=== PATIENT | female | born 1990 | race Caucasian/White ===

== ENCOUNTER 2021-01-31 07:00 | Inpatient (IN) ==
[2021-01-31] MEDS ORDERED: LACTATED RINGER'S 1,000 ML IV PRN (08:36)
[2021-01-31] MEDS ORDERED: OXYTOCIN 30 UNITS/500 ML BAG IV PRN (08:36)
[2021-01-31 09:01] LABS: Hematocrit (blood only) 34.7 % (37-47); Hemoglobin 11.6 g/dL (12.0-16.0); Mean Corpuscular Hemoglobin 28.2 pg (25-34); Mean Corpuscular Hgb Conc 33.4 g/dL (32-36); Mean Corpuscular Volume 84.2 fL (80-100); Mean Platelet Volume 9.3 fL (7.4-10.4); Platelet Count 321 K/uL (130-400); RDW Coefficient of Variation 13.3 % (11.5-14.5); RDW Standard Deviation 40.3 fL (36.4-46.3); Red Blood Count 4.12 M/uL (4.2-5.4); White Blood Count 10.65 K/uL (4.8-10.8)
[2021-01-31] MEDS ORDERED: DEXTROSE 5% 1,000 ML IV PRN (09:10)
[2021-01-31] MEDS ORDERED: SODIUM CHLORIDE 0.9% 1000ML 1,000 ML IV PRN (09:10)
[2021-01-31] MEDS ORDERED: INSULIN REGULAR 250 UNITS in SODIUM CHLORIDE 0.9% 247.5 ML IV PRN (09:10)
[2021-01-31] MEDS ORDERED: DEXTROSE 50% 50 ML SYRINGE IV PRN ×2 (09:10→11:15)
--- NOTE | 2021-01-31 09:19 | History & Physical Report ---
Date of Service January 31, 2021 Assessment & Plan (1) Gestational diabetes mellitus (GDM) affecting first : Plan: Induction of labor for GDM on insulin and Class III obesity Admission and Anticipated Discharge Date Admission Date: January 31, 2021 History of Present Illness Chief Complaint: Induction of labor at 39 weeks for GDM on insulin Primary Care Provider: NO PCP 30 F P0010 at 39 weeks admitted for induction of labor for GDM on insulin and Class III obesity. Allergies Allergy/AdvReac Type Severity Reaction Status Date / Time No Known Allergies Allergy Verified 08/10/20 20:31 Home Medications Medication Instructions Recorded Confirmed Type acetaminophen 500 mg tablet 1,000 mg PO Q6H PRN 08/10/20 01/31/21 History (Tylenol Extra Strength) diphenhydramine HCl 50 mg capsule 50 mg PO HS PRN 08/10/20 01/31/21 History (Unisom SleepGels) insulin NPH isoph U-100 human 100 24 unit SUBCUT QPM 08/10/20 01/31/21 History unit/mL subcutaneous suspension (Novolin N NPH U-100 Insulin isophane) [id number] 1 mg 1 tab PO DAILY 08/10/20 01/31/21 History tablet aspirin 81 mg chewable tablet 81 mg PO DAILY 01/31/21 01/31/21 History insulin NPH isoph U-100 human 12 units SUBCUT QAM 01/31/21 01/31/21 History Patient History Medical History Acute appendicitis ADHD (attention deficit hyperactivity disorder) Depression OCD (obsessive compulsive disorder) H/O hair pulling Surgical History H/O wisdom tooth extraction History of appendectomy History of cholecystectomy Family History Grandfather (Paternal) No pertinent family history Other Hypertension Social History Smoking Status: Former smoker Hx Alcohol Use: No Hx Substance Use: No Preferred Language: Spanish Visual Impairment: Limited Hearing Ability: Normal Switching Operator Required: No Beliefs That Will Affect Care: None marital status: Single Current Living Situation: Significant Other Current Living Situation Comment: S.O. 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 Physical Exam Constitutional: WD/WN, vitals as above + obese and comfortable Eyes: PERRL, conjunctivae normal, anicteric sclerae Neck: trachea midline, no thyromegaly Cardiovascular: Rate/Rhythm: regular rate Neurologic: patellar DTR's 2+ bilat, sensation intact Psychiatric: A+Ox3, euthymic affect Genitourinary: no vaginal lesions, no adnexal mass OB Exam Abdomen: + heart tones, + vertex and + estimated weight (7.5 lbs) Manual OB Exam: + cervical dilation (closed), + cervical effacement 50% and + station high cervix posterior, firm, closed and unripe will plan for Cervidil for cervical ripening Results & Data ([facility]) Vital Signs (Past 12 Hours) Vital Signs Temp Pulse Resp BP 01/31/21 07:38 37.1 C 18 01/31/21 07:13 37.1 C 101 H 20 136/86 Laboratory Results Laboratory Results - last 72 hr 01/31/21 01/31/21 01/31/21 08:20 08:20 08:45 WBC 10.65 RBC 4.12 L Hgb 11.6 L Hct 34.7 L MCV 84.2 MCH 28.2 MCHC 33.4 RDW Std Deviation 40.3 RDW Coeff of [place] 13.3 Plt Count 321 MPV 9.3 POC Glucose COVID-19 Eval [facility] SARS-CoV-2, RNA, NAAT NEGATIVE 01/31/21 08:47 WBC RBC Hgb Hct MCV MCH MCHC RDW Std Deviation RDW Coeff of [place] Plt Count MPV POC Glucose 101 H COVID-19 Eval Order SARS-CoV-2, RNA, NAAT Code Status & VTE Plan VTE Prophylaxis Plan VTE Prophylaxis will be ordered: No Monitoring External Monitor FHT Cat 1
--- NOTE | 2021-01-31 09:43 | Labor Progress Brief Note ---
Date of Service January 31, 2021 Assessment & Plan Admission and Anticipated Discharge Date Admission Date: January 31, 2021 Physical Exam Genitourinary: Cervidil 10 mg placed vaginally for ripening Results & Data ([facility]) Vital Signs (Past 12 Hours) Vital Signs Temp Pulse Resp BP 01/31/21 07:38 37.1 C 18 01/31/21 07:13 37.1 C 101 H 20 136/86
[2021-01-31] MEDS ORDERED: DINOPROSTONE 10 MG INSERT PV ONE (10:00)
[2021-01-31] MEDS ORDERED: PHARMACY GLYCEMIC MGMT CONSULT PRN (10:45)
--- NOTE | 2021-01-31 11:14 | Pharmacy Report ---
Pharmacy Glycemic Short Note 2 - Date of Service January 31, 2021 - Glycemic Short BSG Results (Last 24 hours): 01/31/21 08:47 POC Glucose 101 H OUTPATIENT ANTIDIABETIC REGIMEN: * NPH: 12 units SQ QAM, 24 units SQ QPM ASSESSMENT: * 30 F P0010 at 39 weeks admitted for induction of labor for GDM on insulin and Class III obesity. 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 * Patient is eating and blood sugar to be checked 1 hour after meals. * If patient uncontrolled on SQ regimen, will switch to insulin drip intrapartum protocol. PLAN FOR INPATIENT GLYCEMIC CONTROL: * Basal insulin * NPH 12 units SQ HS for BSG > 120mg/ml * Bolus insulin: NovoLog per sliding scale Q4H * BSG 120 or less - 0 units * BSG 121-140 - 1 units * BSG 141-160 - 2 units * BSG 161-180 - 3 units * BSG 181-200 - 4 units * BSG > 200 = 4 units and switch to IV insulin protocol PLAN FOR DISCHARGE: * to be determined, patient not on insulin prior to , likely will not need , but will need to be monitored as she is at a greater risk now of Type 2 DM, especially with Class III Obesity.
[2021-01-31] MEDS ORDERED: CARBOHYDRATES FOR HYPOGLYCEMIA PO PRN (11:15)
[2021-01-31] MEDS ORDERED: GLUCAGON FOR INJ 1 MG VIAL IM PRN (11:15)
[2021-01-31] MEDS ORDERED: GLUCOSE 10 TABS/TUBE PO PRN (11:15)
[2021-01-31] MEDS ORDERED: GLUCOSE 40% GEL 15 GM TUBE PO PRN (11:15)
[2021-01-31] MEDS: INSULIN ASPART 100 UNITS/ML 3 ML PEN SC SCH ×5 (11:39→23:57)
[2021-01-31] MEDS: NovoLIN-N (NPH) PER UNIT CHARGE SQ SCH (20:51)
[2021-01-31] MEDS ORDERED: BUTORPHANOL TARTRATE 1 MG/ML VIAL IV PRN (21:48)
--- NOTE | 2021-01-31 21:52 | Labor Progress Brief Note ---
Date of Service January 31, 2021 Assessment & Plan Admission and Anticipated Discharge Date Admission Date: January 31, 2021 Physical Exam Genitourinary: Manual OB Exam: + cervical dilation fingertip, + cervical effacement 50% and + station high OB Exam Monitor Tracing: + external FHT monitor used, + external uterine monitor used, + category I and + normal FHT variability Cervidil pulled out of vagina. Cervix is softening. Will give Cytotec 50 mcg through the night. Results & Data ([facility]) Vital Signs (Past 12 Hours) Vital Signs Temp Pulse Resp BP 01/31/21 19:00 36.8 C 18 01/31/21 18:57 72 122/79 01/31/21 14:26 36.6 C 77 18 116/78 01/31/21 11:30 78 118/73 01/31/21 11:29 36.3 C L 16
[2021-02-01] MEDS: miSOPROStoL 50 MCG TAB PO SCH ×5 (01:50→21:47)
[2021-02-01] MEDS: INSULIN ASPART 100 UNITS/ML 3 ML PEN SC SCH ×5 (04:55→19:48)
--- NOTE | 2021-02-01 08:07 | Obstetrical Progress Note ---
Date of Service February 01, 2021 Assessment & Plan Admission and Anticipated Discharge Date Admission Date: January 31, 2021 Subjective Patient is seen and examined I reviewed her records and confirmed with her GDM A2, on insulin GBS negative Received Cervidil PV yesterday and 1 dose of PO Cytotec at 5 am Feels mild contractions, not painful yet VSS Afebrile doing well FHR categ I [place] irregular ctxs q 4-5 min VE; 2/ 30%/ -3, ballotable Bed side US confirmed vertex Continue with cervical ripening Continue to monitor Results & Data ([facility]) Vital Signs (Past 12 Hours) Vital Signs Temp Pulse Resp BP 02/01/21 07:41 91 H 126/81 02/01/21 07:30 36.8 C 20 02/01/21 04:12 83 126/72 01/31/21 23:08 36.7 C 72 18 119/75
--- NOTE | 2021-02-01 12:49 | Pharmacy Report ---
Pharmacy Glycemic Short Note 2 - Date of Service February 01, 2021 - Glycemic Short BSG Results (Last 24 hours): 01/31/21 01/31/21 01/31/21 11:32 13:19 18:17 POC Glucose 136 H 132 H 135 H 01/31/21 01/31/21 02/01/21 20:48 23:54 04:23 POC Glucose 118 H 98 110 H 02/01/21 08:17 POC Glucose 102 H OUTPATIENT ANTIDIABETIC REGIMEN: * NPH: 12 units SQ QAM, 24 units SQ QPM ASSESSMENT: 02/01/21 * Blood sugars well controlled over past 24 hours, 98-136mg/dl, required only 2 units of Novolog * No changes at this time, patient continues to be eating and starting to progress to active labor 01/31/21 * 30 F P0010 at 39 weeks admitted for induction of labor for GDM on insulin and Class III obesity. 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 * Patient is eating. * If patient uncontrolled on SQ regimen, will switch to insulin drip intrapartum protocol. PLAN FOR INPATIENT GLYCEMIC CONTROL: * Basal insulin * NPH 12 units SQ HS for BSG > 120mg/ml * Bolus insulin: NovoLog per sliding scale Q4H * BSG 120 or less - 0 units * BSG 121-140 - 1 units * BSG 141-160 - 2 units * BSG 161-180 - 3 units * BSG 181-200 - 4 units * BSG > 200 = 4 units and switch to IV insulin protocol PLAN FOR DISCHARGE: * to be determined, patient not on insulin prior to , likely will not need , but will need to be monitored as she is at a greater risk now of Type 2 DM, especially with Class III Obesity.
--- NOTE | 2021-02-01 14:07 | Obstetrical Progress Note ---
Date of Service February 01, 2021 Assessment & Plan Admission and Anticipated Discharge Date Admission Date: January 31, 2021 Subjective Patient is reevaluated. She feels mild irregular contractions. Some more pain ful but most are not. No leakage of fluid or vaginal bleeding. Good movements. heart rate category 1, toco with irregular contractions every 4 to 5 minutes. Vaginal exam, cervix is unchanged at 2 cm, 40%, -3, posterior Plan to continue with p.o. Cytotec for cervical ripening. Continue to monitor per protocol and ambulate in between. Results & Data ([facility]) Vital Signs (Past 12 Hours) Vital Signs Temp Pulse Resp BP 02/01/21 11:49 70 99/66 L 02/01/21 10:30 18 02/01/21 09:52 83 123/76 02/01/21 09:45 18 02/01/21 08:00 20 02/01/21 07:41 91 H 126/81 02/01/21 07:30 36.8 C 02/01/21 04:12 83 126/72
[2021-02-01] MEDS ORDERED: ONDANSETRON INJ 2 MG/ML 2 ML VIAL IV PRN (19:49)
--- NOTE | 2021-02-01 19:49 | Obstetrical Progress Note ---
Date of Service February 01, 2021 Assessment & Plan Admission and Anticipated Discharge Date Admission Date: January 31, 2021 Subjective Patient feels more stronger ctxs and more regular than before Pain is 5/10 Declines pain meds She desirss to eat dinner VSS Afebrile FHR categ I [place] ctxs q 2-3 min VE: unchanged, high and posterior cervix, she is uncomfortable with exam Discussed options after dinner, PO Cytotec vs Vaginal Cervidil She prefers PO tb Continue to monitor closely and cervical ripening Results & Data ([facility]) Vital Signs (Past 12 Hours) Vital Signs Temp Pulse Resp BP 02/01/21 19:00 20 02/01/21 18:30 20 02/01/21 15:29 66 125/80 02/01/21 15:00 18 02/01/21 14:30 20 02/01/21 14:05 67 99/67 L 02/01/21 14:00 36.6 C 18 02/01/21 11:49 70 99/66 L 02/01/21 10:30 18 02/01/21 09:52 83 123/76 02/01/21 09:45 18 02/01/21 08:00 20
[2021-02-01] MEDS: NovoLIN-N (NPH) PER UNIT CHARGE SQ SCH (21:48)
[2021-02-02] MEDS: INSULIN ASPART 100 UNITS/ML 3 ML PEN SC SCH ×5 (00:06→16:51)
[2021-02-02] MEDS ORDERED: ACETAMINOPHEN 325 MG TAB PO PRN ×2 (00:20→19:03)
[2021-02-02] MEDS: CALCIUM CARBONATE 500 MG CHEWABLE TAB PO PRN ×3 (00:34→15:47)
[2021-02-02] MEDS: miSOPROStoL 50 MCG TAB PO SCH ×2 (00:35→04:30)
[2021-02-02] MEDS ORDERED: fentaNYL citrate 100 MCG/2 ML VIAL ONE (07:17)
[2021-02-02] MEDS ORDERED: SODIUM CHLORIDE 0.9% INJ 10 ML VIAL ONE (07:17)
[2021-02-02] MEDS ORDERED: ePHEDrine sulfate 50 MG/ML AMP ONE (07:17)
[2021-02-02] MEDS ORDERED: BUPIVACAINE 0.25% 30 ML VIAL ONE (07:17)
[2021-02-02] MEDS ORDERED: fentaNYL 2MCG/ML ROPIVACAINE 1.25MG/ML 100 ML BAG EPI ONE (07:18)
--- NOTE | 2021-02-02 07:19 | Obstetrical Progress Note ---
Date of Service February 02, 2021 Assessment & Plan Admission and Anticipated Discharge Date Admission Date: January 31, 2021 Subjective Patient is reevaluated She started to have more regular and stronger contractions after the last dose of Cytotec. Received Stadol for pain FHR had late decels after recurrent contractions, improved after IVF bolus, now categ I VE: 3/ 50%/ -3 Will give epidural for pain and continue to monitor closely Results & Data ([facility]) Vital Signs (Past 12 Hours) Vital Signs Temp Pulse Resp BP Pulse Ox 02/02/21 07:13 68 88 L 02/02/21 07:10 57 L 97 02/02/21 07:05 67 99 02/02/21 07:03 59 L 104/62 02/02/21 07:00 66 97 02/02/21 06:55 65 97 02/02/21 06:50 63 98 02/02/21 06:45 64 98 02/02/21 06:40 72 99 02/02/21 06:35 56 L 97 02/02/21 06:30 56 L 98 02/02/21 06:25 60 97 02/02/21 06:20 55 L 96 02/02/21 06:15 68 97 02/02/21 06:10 61 97 02/02/21 06:05 58 L 96 02/02/21 06:00 66 97 02/02/21 05:55 58 L 97 02/02/21 05:50 66 96 02/02/21 05:45 61 96 02/02/21 05:40 64 96 02/02/21 05:35 67 97 02/02/21 05:31 63 93 02/02/21 05:30 77 95 02/02/21 05:26 62 94 02/02/21 05:25 66 96 02/02/21 05:20 59 L 93 02/02/21 05:17 66 105/70 02/02/21 05:15 68 97 02/02/21 03:48 36.7 C 76 18 111/63 02/02/21 00:12 36.7 C 18 02/02/21 00:04 36.7 C 72 18 106/61 02/01/21 23:05 36.8 C 75 18 122/67 02/01/21 19:46 68 117/79 02/01/21 19:20 36.8 C 18
[2021-02-02] MEDS: LACTATED RINGER'S 1,000 ML IV SCH ×3 (07:46→16:58)
--- NOTE | 2021-02-02 08:40 | Anesthesiology Consultation ---
Date of Service February 02, 2021 Assessment & Plan Chart Review Chart Review: Acceptable Risk for Labor Epidural Consults Requested none History Height/Weight Height: 5 ft 5 in Weight: 120.202 kg Allergies Allergy/AdvReac Type Severity Reaction Status Date / Time No Known Allergies Allergy Verified 08/10/20 20:31 Medications Home Medications Medication Instructions Recorded Confirmed Last Taken acetaminophen 500 mg tablet 1,000 mg PO Q6H PRN 08/10/20 01/31/21 01/29/21 21:00 (Tylenol Extra Strength) diphenhydramine HCl 50 mg capsule 50 mg PO HS PRN 08/10/20 01/31/21 01/27/21 21:00 (Unisom SleepGels) insulin NPH isoph U-100 human 100 24 unit SUBCUT QPM 08/10/20 01/31/21 01/30/21 21:00 unit/mL subcutaneous suspension (Novolin N NPH U-100 Insulin isophane) vpgnrkjc-[id number]-Ay-[id number] 1 mg 1 tab PO DAILY 08/10/20 01/31/21 01/31/21 06:30 tablet aspirin 81 mg chewable tablet 81 mg PO DAILY 01/31/21 01/31/21 01/31/21 06:30 insulin NPH isoph U-100 human 12 units SUBCUT QAM 01/31/21 01/31/21 01/31/21 06:00 Active Medications Generic Name Dose Route Start Last Admin Trade Name Freq PRN Reason Stop Dose Admin Acetaminophen 650 mg 02/02/21 00:20 02/02/21 00:34 Acetaminophen 325 Mg Tab PO 03/04/21 00:19 650 mg Q4H PRN Administration Pain Butorphanol Tartrate 1 mg 01/31/21 21:48 02/02/21 05:17 Butorphanol Tartrate 1 Mg/Ml Vial IV 03/02/21 21:47 1 mg Q2R PRN Administration Pain Calcium Carbonate 500 mg 02/02/21 00:20 02/02/21 00:34 Calcium Carbonate 500 Mg Chewable Tab PO 03/04/21 00:19 500 mg Q6 PRN Administration Indigestion Lactated Ringer's 1,000 mls @ 150 mls/hr 02/02/21 07:30 02/02/21 07:46 Lr IV 03/04/21 07:29 150 mls/hr .Q6H40M MICHELL Administration Insulin Aspart 0 units 01/31/21 12:00 02/02/21 04:06 Insulin Aspart 100 Units/Ml 3 Ml Pen SC 03/02/21 11:59 Not Given Q4H MICHELL Protocol Insulin Human NPH 0 units 01/31/21 21:00 02/01/21 21:48 Novolin-N (Nph) Per Unit Charge SQ 03/02/21 20:59 Not Given HS MICHELL Protocol Misoprostol 50 mcg 02/01/21 00:00 02/02/21 04:30 Misoprostol 50 Mcg Tab PO 03/03/21 00:00 Not Given Q4 MICHELL Past Medical History Medical History Acute appendicitis ADHD (attention deficit hyperactivity disorder) Depression OCD (obsessive compulsive disorder) H/O hair pulling Past Family History Family History Grandfather (Paternal) No pertinent family history Other Hypertension Past Surgical History Surgical History H/O wisdom tooth extraction History of appendectomy History of cholecystectomy Social History Smoking Status: Former smoker tobacco type: cigarettes Hx Alcohol Use: No Hx Substance Use: No substance use type: does not use Physical Exam Vital Signs Last Vital Signs Temp 36.5 C 02/02/21 07:15 Pulse 73 02/02/21 08:39 Resp 20 02/02/21 08:00 BP 114/73 02/02/21 08:39 Pulse Ox 100 02/02/21 08:35 Testing Laboratory Results 01/31/21 08:45 02/02/21 02/02/21 02/02/21 07:56 04:06 00:06 POC Glucose 93 87 101 H
[2021-02-02] MEDS ORDERED: fentaNYL 2MCG/ML ROPIVACAINE 1.25MG/ML 100 ML BAG EPI PRN (08:41)
[2021-02-02] MEDS ORDERED: OXYTOCIN 30 UNITS/500 ML BAG IV PRN ×2 (08:41→19:03)
[2021-02-02] MEDS ORDERED: diphenhydrAMINE 50 MG/ML VIAL IV PRN (08:41)
[2021-02-02] MEDS ORDERED: NALOXONE HCL 1 MG in SODIUM CHLORIDE 0.9% 1000ML 1,000 ML IV PRN (08:41)
[2021-02-02] MEDS ORDERED: NALOXONE HCL 0.4 MG/1 ML VIAL/CARP IV PRN (08:41)
[2021-02-02] MEDS ORDERED: NALBUPHINE HCL INJ 10 MG/ML AMP IV PRN (08:41)
[2021-02-02] MEDS: ePHEDrine sulfate 50 MG/ML AMP IV PRN ×2 (10:18→10:50)
--- NOTE | 2021-02-02 10:27 | Labor Progress Brief Note ---
Date of Service February 02, 2021 Assessment & Plan Admission and Anticipated Discharge Date Admission Date: January 31, 2021 Physical Exam Genitourinary: Manual OB Exam: + cervical dilation 5 cm, + cervical effacement 90%, + station -1 and + amniotic fluid (SROM clear fluid on exam) clear Results & Data ([facility]) Vital Signs (Past 12 Hours) Vital Signs Temp Pulse Resp BP Pulse Ox 02/02/21 10:23 68 122/61 02/02/21 10:21 95 H 82/46 L 02/02/21 10:20 105 H 100 02/02/21 10:19 94 H 92 02/02/21 10:16 62 97/55 L 02/02/21 10:15 70 98 02/02/21 10:14 72 103/56 L 02/02/21 10:10 58 L 99 02/02/21 10:08 68 106/63 02/02/21 10:05 77 100 02/02/21 10:03 75 95/50 L 02/02/21 10:00 81 100 02/02/21 09:59 82 116/59 L 02/02/21 09:56 73 87 L 02/02/21 09:55 75 99 02/02/21 09:54 64 96/58 L 02/02/21 09:50 59 L 98 02/02/21 09:48 63 91/51 L 02/02/21 09:45 60 98 02/02/21 09:43 60 95/54 L 02/02/21 09:40 66 100 02/02/21 09:39 60 94/51 L 02/02/21 09:35 58 L 98 02/02/21 09:33 76 93/54 L 02/02/21 09:30 64 20 94/52 L 97 02/02/21 09:25 62 95/50 L 98 02/02/21 09:20 61 99 02/02/21 09:18 73 92/54 L 02/02/21 09:15 65 98 02/02/21 09:12 75 94/56 L 02/02/21 09:10 61 99/57 L 98 02/02/21 09:08 71 93/54 L 02/02/21 09:06 78 95/54 L 02/02/21 09:05 70 98 02/02/21 09:04 64 100/56 L 02/02/21 09:02 65 102/58 L 02/02/21 09:00 65 103/61 98 02/02/21 08:58 88 97/59 L 02/02/21 08:56 83 96/56 L 02/02/21 08:55 73 100 02/02/21 08:54 74 100/56 L 02/02/21 08:52 90 99/55 L 02/02/21 08:50 90 96/52 L 99 02/02/21 08:48 78 105/55 L 02/02/21 08:46 77 104/57 L 02/02/21 08:45 87 20 100 02/02/21 08:44 88 95/50 L 02/02/21 08:42 96 H 95/50 L 02/02/21 08:40 82 100/52 L 99 02/02/21 08:39 73 114/73 02/02/21 08:36 69 102/58 L 02/02/21 08:35 83 100 02/02/21 08:34 75 103/61 02/02/21 08:32 69 106/63 02/02/21 08:30 58 L 111/64 99 02/02/21 08:28 64 110/65 02/02/21 08:27 76 104/63 02/02/21 08:25 73 100 02/02/21 08:24 71 120/61 02/02/21 08:20 73 100 02/02/21 08:17 74 120/59 L 02/02/21 08:15 61 100 02/02/21 08:10 69 100 02/02/21 08:00 20 02/02/21 07:30 20 02/02/21 07:15 36.5 C 22 02/02/21 07:13 68 88 L 02/02/21 07:10 57 L 97 02/02/21 07:05 67 99 02/02/21 07:03 59 L 104/62 02/02/21 07:00 66 97 02/02/21 06:55 65 97 02/02/21 06:50 63 98 02/02/21 06:45 64 98 02/02/21 06:40 72 99 02/02/21 06:35 56 L 97 02/02/21 06:30 56 L 98 02/02/21 06:25 60 97 02/02/21 06:20 55 L 96 02/02/21 06:15 68 97 02/02/21 06:10 61 97 02/02/21 06:05 58 L 96 02/02/21 06:00 66 97 02/02/21 05:55 58 L 97 02/02/21 05:50 66 96 02/02/21 05:45 61 96 02/02/21 05:40 64 96 02/02/21 05:35 67 97 02/02/21 05:31 63 93 02/02/21 05:30 77 95 02/02/21 05:26 62 94 02/02/21 05:25 66 96 02/02/21 05:20 59 L 93 02/02/21 05:17 66 105/70 02/02/21 05:15 68 97 02/02/21 03:48 36.7 C 76 18 111/63 02/02/21 00:12 36.7 C 18 02/02/21 00:04 36.7 C 72 18 106/61 02/01/21 23:05 36.8 C 75 18 122/67
--- NOTE | 2021-02-02 13:21 | Labor Progress Brief Note ---
Date of Service February 02, 2021 Assessment & Plan Admission and Anticipated Discharge Date Admission Date: January 31, 2021 Physical Exam Genitourinary: Manual OB Exam: + cervical dilation 7 cm, + cervical effacement 90% and + station -2 OB Exam Monitor Tracing: + external FHT monitor used, + external uterine monitor used, + category I and + normal FHT variability Results & Data ([facility]) Vital Signs (Past 12 Hours) Vital Signs Temp Pulse Resp BP Pulse Ox 02/02/21 13:20 67 02/02/21 13:19 126/66 02/02/21 13:15 66 97 02/02/21 13:10 79 99 02/02/21 13:05 61 97 02/02/21 13:02 72 108/65 02/02/21 13:00 58 L 97 02/02/21 12:55 56 L 98 02/02/21 12:50 58 L 98 02/02/21 12:47 62 109/66 02/02/21 12:45 60 97 02/02/21 12:40 60 99 02/02/21 12:35 61 98 02/02/21 12:30 61 99 02/02/21 12:25 70 99 02/02/21 12:20 62 98 02/02/21 12:15 60 97 02/02/21 12:10 70 97 02/02/21 12:06 72 89 L 02/02/21 12:05 67 100 02/02/21 12:02 68 100/60 02/02/21 12:00 79 20 98 02/02/21 11:57 71 94 02/02/21 11:55 89 100 02/02/21 11:50 73 99 02/02/21 11:47 82 97/53 L 02/02/21 11:45 74 99 02/02/21 11:40 78 100 02/02/21 11:35 73 98 02/02/21 11:32 86 96/51 L 02/02/21 11:30 72 98 02/02/21 11:25 72 98 02/02/21 11:22 70 90/54 L 02/02/21 11:20 80 98 02/02/21 11:15 71 99 02/02/21 11:11 73 91/55 L 02/02/21 11:10 70 100 02/02/21 11:09 67 92/55 L 02/02/21 11:07 65 95/52 L 02/02/21 11:05 67 91/53 L 100 02/02/21 11:03 69 93/55 L 02/02/21 11:01 80 99/56 L 02/02/21 11:00 73 20 100 02/02/21 10:59 71 96/54 L 02/02/21 10:57 65 102/59 L 02/02/21 10:55 71 103/57 L 99 02/02/21 10:54 67 105/57 L 02/02/21 10:50 85 95/54 L 100 02/02/21 10:45 79 100 02/02/21 10:44 77 90/50 L 02/02/21 10:40 76 89/52 L 100 02/02/21 10:35 79 100 02/02/21 10:33 70 94/50 L 02/02/21 10:30 36.5 C 73 22 91/54 L 97 02/02/21 10:25 74 100 02/02/21 10:23 68 122/61 02/02/21 10:21 95 H 82/46 L 02/02/21 10:20 105 H 100 02/02/21 10:19 94 H 92 02/02/21 10:16 62 97/55 L 02/02/21 10:15 70 98 02/02/21 10:14 72 103/56 L 02/02/21 10:10 58 L 99 02/02/21 10:08 68 106/63 02/02/21 10:05 77 100 02/02/21 10:03 75 95/50 L 02/02/21 10:00 81 100 02/02/21 09:59 82 116/59 L 02/02/21 09:56 73 87 L 02/02/21 09:55 75 99 02/02/21 09:54 64 96/58 L 02/02/21 09:50 59 L 98 02/02/21 09:48 63 91/51 L 02/02/21 09:45 60 98 02/02/21 09:43 60 95/54 L 02/02/21 09:40 66 100 02/02/21 09:39 60 94/51 L 02/02/21 09:35 58 L 98 02/02/21 09:33 76 93/54 L 02/02/21 09:30 64 20 94/52 L 97 02/02/21 09:25 62 95/50 L 98 02/02/21 09:20 61 99 02/02/21 09:18 73 92/54 L 02/02/21 09:15 65 98 02/02/21 09:12 75 94/56 L 02/02/21 09:10 61 99/57 L 98 02/02/21 09:08 71 93/54 L 02/02/21 09:06 78 95/54 L 02/02/21 09:05 70 98 02/02/21 09:04 64 100/56 L 02/02/21 09:02 65 102/58 L 02/02/21 09:00 65 103/61 98 02/02/21 08:58 88 97/59 L 02/02/21 08:56 83 96/56 L 02/02/21 08:55 73 100 02/02/21 08:54 74 100/56 L 02/02/21 08:52 90 99/55 L 02/02/21 08:50 90 96/52 L 99 02/02/21 08:48 78 105/55 L 02/02/21 08:46 77 104/57 L 02/02/21 08:45 87 20 100 02/02/21 08:44 88 95/50 L 02/02/21 08:42 96 H 95/50 L 02/02/21 08:40 82 100/52 L 99 02/02/21 08:39 73 114/73 02/02/21 08:36 69 102/58 L 02/02/21 08:35 83 100 02/02/21 08:34 75 103/61 02/02/21 08:32 69 106/63 02/02/21 08:30 58 L 111/64 99 02/02/21 08:28 64 110/65 02/02/21 08:27 76 104/63 02/02/21 08:25 73 100 02/02/21 08:24 71 120/61 02/02/21 08:20 73 100 02/02/21 08:17 74 120/59 L 02/02/21 08:15 61 100 02/02/21 08:10 69 100 02/02/21 08:00 20 02/02/21 07:30 20 02/02/21 07:15 36.5 C 22 02/02/21 07:13 68 88 L 02/02/21 07:10 57 L 97 02/02/21 07:05 67 99 02/02/21 07:03 59 L 104/62 02/02/21 07:00 66 97 02/02/21 06:55 65 97 02/02/21 06:50 63 98 02/02/21 06:45 64 98 02/02/21 06:40 72 99 02/02/21 06:35 56 L 97 02/02/21 06:30 56 L 98 02/02/21 06:25 60 97 02/02/21 06:20 55 L 96 02/02/21 06:15 68 97 02/02/21 06:10 61 97 02/02/21 06:05 58 L 96 02/02/21 06:00 66 97 02/02/21 05:55 58 L 97 02/02/21 05:50 66 96 02/02/21 05:45 61 96 02/02/21 05:40 64 96 02/02/21 05:35 67 97 02/02/21 05:31 63 93 02/02/21 05:30 77 95 02/02/21 05:26 62 94 02/02/21 05:25 66 96 02/02/21 05:20 59 L 93 02/02/21 05:17 66 105/70 02/02/21 05:15 68 97 02/02/21 03:48 36.7 C 76 18 111/63
[2021-02-02] MEDS ORDERED: SUPERCREAM 0.870% 15 GM JAR EXT PRN (19:03)
[2021-02-02] MEDS ORDERED: BENZOCAINE 20% AER SPR 82.5 GM CAN EXT PRN (19:03)
[2021-02-02] MEDS ORDERED: bisacodyL 10 MG SUPP PR PRN (19:03)
[2021-02-02] MEDS ORDERED: HYDROCORTISONE ACETATE 25 MG SUPP PR PRN (19:03)
[2021-02-02] MEDS ORDERED: ACETAMINOPHEN HOME PACK 500 MG TABLET PO PRN (19:03)
--- NOTE | 2021-02-02 19:05 | Delivery Summary ---
Vaginal Delivery Summary Date of Service February 02, 2021 Vaginal Delivery Summary Delivery Note live male ESDRAS over intact perineum with nuchal cord x1 reduced on delivery of head with delayed cord clamping a and Apgars 8/9 weight pending. Cord blood obtained followed by spontaneous delivery of intact placenta. First degree tear repaired with 3/0 Vicryl suture. EBL 100 ml. Final sponge needle and instrument count are correct. Mom and baby stable.
[2021-02-02] MEDS ORDERED: diphenhydrAMINE Capsule 25 MG CAP PO PRN (19:17)
[2021-02-02] MEDS: IBUPROFEN 600 MG TAB PO PRN (19:32)
--- NOTE | 2021-02-02 19:32 | Anesthesia Procedure Note ---
Date of Service February 02, 2021 Anesthesia Post Epidural Note Vital Signs Vital Signs: Temp Pulse Resp BP Pulse Ox 36.8 C 75 20 130/65 99 02/02/21 18:05 02/02/21 19:17 02/02/21 18:05 02/02/21 19:17 02/02/21 18:12 Pain Intensity Back: Pain Intensity: 3 Right Abdomen: Pain Intensity: 0 Notes Mental Status: alert / awake / arousable and participated in evaluation Patient Amnestic to Procedure: Yes Nausea / Vomiting: adequately controlled Pain: adequately controlled Airway Patency, RR, SpO2: stable & adequate BP & HR: stable & adequate Hydration State: stable & adequate Anesthetic Complications: no major complications apparent and Pt Satisfied with anesthetic care Epidural: Removed without complications and With tip intact
[2021-02-02] MEDS: DOCUSATE SODIUM 100 MG CAP PO SCH (20:58)
[2021-02-02 21:51] VITALS: O2SAT 97
[2021-02-03] MEDS: IBUPROFEN 600 MG TAB PO PRN ×3 (04:11→14:50)
[2021-02-03 06:29] LABS: Hematocrit (blood only) 31.3 % (37-47); Hemoglobin 10.4 g/dL (12.0-16.0); Mean Corpuscular Hemoglobin 28.6 pg (25-34); Mean Corpuscular Hgb Conc 33.2 g/dL (32-36); Mean Platelet Volume 9.3 fL (7.4-10.4); Platelet Count 300 K/uL (130-400); RDW Coefficient of Variation 13.5 % (11.5-14.5); RDW Standard Deviation 42.8 fL (36.4-46.3); Red Blood Count 3.64 M/uL (4.2-5.4); White Blood Count 15.28 K/uL (4.8-10.8)
[2021-02-03] MEDS ORDERED: PRENATAL VITAMIN 1 TAB PO SCH ×2 (08:00→09:00)
[2021-02-03] MEDS ORDERED: ASPIRIN 81 MG ECTAB PO SCH (09:00)
[2021-02-03] MEDS ORDERED: DIPHTHERIA/TETANUS/PERTUSSIS 0.5 ML SYR/VIAL IM ONE (09:00)
--- NOTE | 2021-02-03 09:25 | Obstetrical Progress Note ---
Date of Service February 03, 2021 Subjective Ambulation: ambulating normally Voiding: no voiding problems Diet Tolerance:: regular diet Feeding Type:: breast feeding Current Pain Level(1-10): 0 doing well wants to go home today Physical Exam Constitutional WD/WN, vitals as above comfortable abdomen soft and non-tender fundus firm no edema neg [facility] for d/c today Results & Data ([facility]) Vital Signs (Past 12 Hours) Vital Signs Temp Pulse Resp BP 02/03/21 04:10 36.8 C 93 H 18 100/69 02/03/21 01:00 37.1 C 82 18 108/71 Laboratory Results Laboratory Results - last 72 hr 01/31/21 01/31/21 01/31/21 11:32 13:19 18:17 WBC RBC Hgb Hct MCV MCH MCHC RDW Std Deviation RDW Coeff of [place] Plt Count MPV POC Glucose 136 H 132 H 135 H 01/31/21 01/31/21 02/01/21 20:48 23:54 04:23 WBC RBC Hgb Hct MCV MCH MCHC RDW Std Deviation RDW Coeff of [place] Plt Count MPV POC Glucose 118 H 98 110 H 02/01/21 02/01/21 02/01/21 08:17 11:51 16:08 WBC RBC Hgb Hct MCV MCH MCHC RDW Std Deviation RDW Coeff of [place] Plt Count MPV POC Glucose 102 H 107 H 104 H 02/01/21 02/02/21 02/02/21 19:48 00:06 04:06 WBC RBC Hgb Hct MCV MCH MCHC RDW Std Deviation RDW Coeff of [place] Plt Count MPV POC Glucose 120 H 101 H 87 02/02/21 02/02/21 02/02/21 07:56 10:15 11:56 WBC RBC Hgb Hct MCV MCH MCHC RDW Std Deviation RDW Coeff of [place] Plt Count MPV POC Glucose 93 99 98 02/02/21 02/03/21 15:58 05:58 WBC 15.28 H RBC 3.64 L Hgb 10.4 L Hct 31.3 L MCV 86.0 MCH 28.6 MCHC 33.2 RDW Std Deviation 42.8 RDW Coeff of [place] 13.5 Plt Count 300 MPV 9.3 POC Glucose 80
[2021-02-03] MEDS: DOCUSATE SODIUM 100 MG CAP PO SCH (09:52)
[2021-02-03 16:19] VITALS: BP 105/71; PULSE 78; TEMP 98.2
[2021-02-03] MEDS ORDERED: bisacodyL 5 MG TABEC PO SCH (20:00)
== END 2021-02-03 20:10 | disposition home or self-care (01) | DRG 807 ==
LOC: 4S1 07:00 → 4S2 02-02 21:08